=== PATIENT | male | born 1990 | race Two or more races ===

== ENCOUNTER 2017-10-22 18:54 | Emergency (ER) | payer MEDICARE, OTHER ==
[~2017-10-22] VITALS: Ht 180.3 cm; Wt 74.8 kg
[2017-10-22] MEDS ORDERED: NKM (19:37)
[2017-10-22] MEDS ORDERED: IBUPROFEN600 MG ORAL (20:26)
--- NOTE | 2017-10-22 21:23 | Emergency Room Report ---
History of Present Illness General Chief Complaint: General Complaint Source: Patient Present Illness [facility] The patient is a 27-year-old male presenting for rectal pain since yesterday. He denies any known provoking factors. He denies any constipation or diarrhea. Pain is 8/10 sharp sensation and does not radiate. Pain is constant. He denies any other symptoms including N, V, F, rash, melena, hematochezia Allergies: Coded Allergies: No Known Allergies (Unverified , 10/22/17) Patient History Past Medical History: see triage record Pertinent Family History: none Reviewed Nursing Documentation: PMH: Agreed, PSxH: Agreed Nursing Documentation-PMH Past Medical History: No Stated History Review of Systems All Other Systems: negative except mentioned in HPI Physical Exam Vital Signs Date Time Temp Pulse Resp B/P (MAP) Pulse Ox O2 Delivery O2 Flow Rate FiO2 10/22/17 19:37 97.5 125 16 133/85 96 Room Air Sp02 EP Interpretation: reviewed, normal General Appearance: no apparent distress, alert, GCS 15, non-toxic Head: normocephalic, atraumatic Eyes: bilateral eye normal inspection, bilateral eye PERRL ENT: hearing grossly normal, normal pharynx, no angioedema, normal voice Rectal: normal exam, normal rectal tone Neurologic: alert, responsive, sensory intact Skin: normal color, no rash, warm/dry, well hydrated Medical Decision Making PA Attestation Dr. Claros is my supervising physician. Patient management was discussed with my supervising physician Diagnostic Impression: Primary Impression: Rectal pain ER Course The patient is a 27-year-old male presenting for rectal pain since yesterday Differential diagnoses considered include but not limited to internal hemorrhoid , external hemorrhoid, cellulitis, abscess, rectal prolapse PE: NAD Rectal exam: No hemorrhoid. Normal tone. No lesions or abscess. The patient is somewhat anxious and states that there are feathers falling down from his anus. He'll be discharged home with pain medications. ER precautions are given Last Vital Signs Date Time Temp Pulse Resp B/P (MAP) Pulse Ox O2 Delivery O2 Flow Rate FiO2 10/22/17 19:37 97.5 125 16 133/85 96 Room Air Status: improved Disposition: HOME, SELF-CARE Condition: Improved Scripts Ibuprofen* (MOTRIN*) 600 Mg Tablet 600 MG ORAL Q8H Y for For Pain, #30 TAB 0 Refills Prov: JESUS DE LOS SANTOS 10/22/17 Additional Instructions: I discussed my findings with the patient. All questions and concerns have been answered. Treatment and medication compliance have been addressed. I advised the patient that they need to follow up with PMD in 3-5 days. Return to ED if symptoms worsen, new symptoms arise, or if needed for any reason. Patient verbalized understanding of discharge instructions. JESUS DE LOS SANTOS Oct 22, 2017 21:23
[2017-10-22 21:30] VITALS: BP 133/85
[2017-10-23] MEDS ORDERED: NKM (04:30)
[2017-10-23 04:36] VITALS: BP 133/85
== END 2017-10-22 21:41 | disposition home or self-care (01) ==
LOC: EMR 21:29
DX: K62.89 Other specified diseases of anus and rectum (principal)
CPT/HCPCS: 99283

== ENCOUNTER 2017-10-23 04:34 | Emergency (ER) | payer MEDICARE, OTHER ==
[~2017-10-23] VITALS: Ht 167.6 cm; Wt 74.8 kg
[2017-10-23 04:26] VITALS: BP 123/81
[~2017-10-23 04:34] MED LIST: IBUPROFEN600 MG ORAL; NKM
--- NOTE | 2017-10-23 04:56 | Emergency Room Report ---
History of Present Illness General Chief Complaint: Pain Source: Patient Present Illness HPI Is a 27-year-old male is been here for 5 times a day already. He complaining of blister to his feet. Also complaining of some out of his anus. Earlier today came in say that there is others come out of his anus. He told EMS that he has vidal. Denies any other complaint. No nausea no vomiting. Not taking his psychiatric medication. Allergies: Coded Allergies: No Known Allergies (Unverified , 10/22/17) Patient History Past Medical History: see triage record, old chart reviewed, psych hx Past Surgical History: none Pertinent Family History: none Social History: Denies: drug use Immunizations: other Reviewed Nursing Documentation: PMH: Agreed, PSxH: Agreed Nursing Documentation-PMH Past Medical History: No Stated History Review of Systems Eye: Denies: eye pain, blurred vision ENT: Denies: ear pain, nose congestion, throat swelling Respiratory: Denies: cough, shortness of breath Cardiovascular: Denies: chest pain, palpitations Gastrointestinal: Denies: abdominal pain, diarrhea, nausea, vomiting Musculoskeletal: Denies: back pain, joint pain Skin: Denies: rash Neurological: Denies: headache, numbness Endocrine: Denies: increased thirst, increased urine Hematologic/Lymphatic: Denies: easy bruising All Other Systems: negative except mentioned in HPI Physical Exam Vital Signs Date Time Temp Pulse Resp B/P (MAP) Pulse Ox O2 Delivery O2 Flow Rate FiO2 10/23/17 04:26 98.1 103 16 123/81 99 Room Air vitals normal Sp02 EP Interpretation: reviewed, normal General Appearance: well appearing, no apparent distress, alert, other - Unkempt Head: normocephalic, atraumatic Eyes: bilateral eye PERRL, bilateral eye EOMI ENT: hearing grossly normal, normal pharynx Neck: full range of motion, supple, no meningismus Respiratory: chest non-tender, lungs clear, normal breath sounds Cardiovascular #1: regular rate, rhythm, no murmur Gastrointestinal: normal bowel sounds, non tender, no mass, no organomegaly, no bruit, non-distended Musculoskeletal: back normal, gait/station normal, normal range of motion, other - Has blister to his feet on the sole. Neurologic: alert, oriented x3 Psychiatric: mood/affect normal Skin: warm/dry Medical Decision Making Diagnostic Impression: Primary Impression: Rectal pain Additional Impressions: Friction blisters of sole of right foot Qualified Codes: S90.821A - Blister (nonthermal), right foot, initial encounter Friction blisters of sole of left foot Qualified Codes: S90.822A - Blister (nonthermal), left foot, initial encounter ER Course With this on his feet from walking. No infection. His psych issue is stable. We'll discharge home. Last Vital Signs Date Time Temp Pulse Resp B/P (MAP) Pulse Ox O2 Delivery O2 Flow Rate FiO2 10/23/17 04:26 98.1 103 16 123/81 99 Room Air Status: unchanged Disposition: HOME, SELF-CARE Condition: Stable Additional Instructions: followup with your Dr. in 7 days. Return if worse. RAINE CABRERA M.D. Oct 23, 2017 04:56
[2017-10-23 05:13] VITALS: BP 133/82
== END 2017-10-23 05:15 | disposition home or self-care (01) ==
LOC: EDBD 04:34 → EMR 05:00
DX: K62.89 Other specified diseases of anus and rectum (principal); S90.821A Blister (nonthermal), right foot, initial encounter
CPT/HCPCS: 99282